=== PATIENT | male | born 1975 | race Asian ===

== ENCOUNTER 2017-07-21 11:41 | Emergency (ER) | payer MEDICAID ==
[2017-07-21 11:47] VITALS: TEMP 97.5; O2SAT 94
--- NOTE | 2017-07-21 12:15 | EDPHY ---
H & P Stated Complaint: ABD PAIN/BLOOD IN STOOL/INTERMITTENT OVER 1 YEAR Time Seen by Provider: 07/21/17 12:03 HPI/ROS: CHIEF COMPLAINT: Possible blood in stool 2 weeks ago HISTORY OF PRESENT ILLNESS: 42-year-old male no history of anticoagulant use, chronic NSAID use, alcohol use, abdominal surgeries, states that 2 weeks ago in 1 day he had 2 bowel movements that had a red appearance to them. He had some pain at that time as well with defecation. Pain with wiping. The symptoms have now resolved aid in seek medical attention at that time due to insurance issues. He notes chronic sleepiness which has been occurring for several years and notes no change in this. No fatigue. No dizziness. No nausea or vomiting. No abdominal pain. No rectal foreign body insertion. No fever or chills. No urinary abnormality. No beet ingestion. PRIMARY CARE PROVIDER:none REVIEW OF SYSTEMS: A ten point review of systems was performed and is negative with the exception of the items mentioned in the HPI PAST MEDICAL & SURGICAL HISTORY: No history of abdominal surgeries SOCIAL HISTORY: Nonsmoker. . PHYSICAL EXAM (Prior to examination, patient consented to physical exam, hands were washed and my usual and customary physical exam procedures followed) 1) GENERAL: Well-developed, well-nourished, alert and oriented. Appears to be in no acute distress. 2) HEAD: Normocephalic, atraumatic 3) HEENT: Pupils equal, round, reactive to light bilaterally. Sclera anicteric. Nasopharynx, oropharynx, clear, no lesions. Moist mucous membranes. 4) NECK: Full range of motion, no meningeal signs. 5) LUNGS: Clear auscultation bilaterally, no wheezes, no rhonchi, no retractions. 6) HEART: Regular rate and rhythm, no murmur, no heave, no gallop. 7) ABDOMEN: No guarding, no rebound, no focal tenderness, negative McBurney's, negative Avalos's, negative Rovsing's, negative peritoneal sign, I am unable to elicit any abdominal pain on exam 8) MUSCULOSKELETAL: Moving all extremities, no focal areas of tenderness, no obvious trauma. No peripheral edema or discoloration. 9) BACK: No CVA tenderness, no midline vertebral tenderness, no fluctuance, no step-off, no obvious trauma, no visual or palpable abnormality. 10) SKIN: No rash, no petechiae. 11) RECTAL: Multiple non thrombosed external hemorrhoids. Brown stool on glove. DIFFERENTIAL DIAGNOSIS: no particular include but limited to beet ingestion, hemorrhoid, anal fissure, GI bleed - Personal History Current Tetanus/Diphtheria Vaccine: Yes - Medical/Surgical History Hx Asthma: No Hx Chronic Respiratory Disease: No Hx Diabetes: No Hx Cardiac Disease: No Hx Renal Disease: No Hx Cirrhosis: No Hx Alcoholism: No Hx HIV/AIDS: No Hx Splenectomy or Spleen Trauma: No Other PMH: SLEEP APNEA/?HEMORRHOIDS - Social History Smoking Status: Never smoked Constitutional: Initial Vital Signs Temperature (C) 36.4 C 07/21/17 11:44 Heart Rate 98 07/21/17 11:44 Respiratory Rate 17 07/21/17 11:44 Blood Pressure 130/95 H 07/21/17 11:44 O2 Sat (%) 94 07/21/17 11:44 O2 Delivery Mode Room Air Allergies/Adverse Reactions: No Known Allergies Allergy (Unverified 07/21/17 11:44) Home Medications: Medication Instructions Recorded Hydrocortisone Acetate [Anucort-Hc] 25 mg RC DAILY #10 supp.rect 07/21/17 Medical Decision Making ED Course/Re-evaluation: 12:44 p.m.: Patient was re-evaluated with serial examinations. Discussed with him is negative serum occult blood no gross bleeding on rectal examination, brown stool only. Addition he has normal vital signs. I do not think, at this time, doubt further diagnostic studies are indicated. I have discussed his non thrombosed hemorrhoids with him and treatment for such. I recommended he establish primary care and have given him this referral information for the [facility] also given him Gastroenterology information. He feels comfortable being discharged , all questions and concerns addressed by myself.Care of patient under supervision of secondary supervising physician Dr Dooley . - Data Points Laboratory Results: 07/21/17 12:18 Stool Occult Bld Scrn NEGATIVE (NEGATIVE) Departure - Departure Disposition: Home, Routine, Self-Care Clinical Impression: Hemorrhoids Qualifiers: Hemorrhoid type: unspecified Qualified Code(s): K64.9 - Unspecified hemorrhoids Condition: Good Instructions: Hemorrhoids (ED) Additional Instructions: Return to the ER if you develop abdominal pain, further episodes of blood in her stool, dizziness, or any other symptoms that concern you. Referrals: [facility],. [Clinic] - 5-7 days, call for appt. Prescriptions: Hydrocortisone Acetate [Anucort-Hc] 25 mg RC DAILY #10 supp.rect
[2017-07-21 12:45] VITALS: BP 114/91; PULSE 92; RESP 16
== END 2017-07-21 12:44 | disposition home or self-care (01) ==
DX: K64.4 Residual hemorrhoidal skin tags (principal)

== ENCOUNTER 2017-09-23 20:50 | Emergency (ER) | payer OTHER, MEDICAID ==
[2017-09-23 20:55] VITALS: PULSE 87; RESP 18; TEMP 98.2
--- NOTE | 2017-09-23 21:02 | EDPHY ---
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 He felt immediate pain and started to bleed. He is ambulatory without deficit. Unsure of last tetanus booster. Filed police report. Denies paresthesias/decreased range of motion. Modifying Factors: None Comment: ROS: see HPI Constitutional: No fever, no chills, no weight loss Eyes: No blurred vision Respiratory: No shortness of breath, no cough Cardiovascular: No chest pain Gastrointestinal: No nausea, no vomiting no diarrhea Genitourinary: No dysuria Extremities: No myalgias Neurologic: No weakness, no numbness Skin: No rashes Hematologic: No bruising, no bleeding MEDICAL/SURGICAL/SOCIAL HISTORY: Medical history: SLEEP APNEA/?HEMORRHOIDS Surgical history: Denies Social history: Employed with medics. CONSTITUTIONAL: Anxious male, awake and alert, no obvious distress HEENT: Atraumatic and normocephalic, PERRL, EOMI. Tympanic membranes clear. Oropharynx clear, no exudate and moist pink mucosa. Airway patent. No lymphadenopathy. No meningismus. Cardiovascular: Normal S1/S2, regular rate, regular rhythm, without murmur rub or gallop. PULMONARY/CHEST: Symmetrical and nontender. Clear to auscultation bilaterally. Good air movement. No accessory muscle usage. ABDOMEN: Soft, nondistended, nontender, no rebound, no guarding, no peritoneal signs, no masses or organomegaly. No CVAT. EXTREMITIES: 2/2 pulses, strength 5/5, no deformities, no clubbing, no cyanosis or edema. NEUROLOGICAL: no focal neuro deficits. GCS 15. SKIN: Warm and dry, right calf shows bite superficial gamble; with mild surrounding bruising. No deep puncture wound appreciated. No active bleeding. no erythema. no rash. Good capillary refill. Source: Patient Exam Limitations: No limitations - Personal History Current Tetanus Diphtheria and Acellular Pertussis (TDAP): Yes - Medical/Surgical History Hx Asthma: No Hx Chronic Respiratory Disease: No Hx Diabetes: No Hx Cardiac Disease: No Hx Renal Disease: No Hx Cirrhosis: No Hx Alcoholism: No Hx HIV/AIDS: No Hx Splenectomy or Spleen Trauma: No Other PMH: SLEEP APNEA/?HEMORRHOIDS - Social History Smoking Status: Never smoked Constitutional: Initial Vital Signs Temperature (C) 36.8 C 09/23/17 20:53 Heart Rate 87 09/23/17 20:53 Respiratory Rate 18 09/23/17 20:53 Blood Pressure 142/85 H 09/23/17 20:53 O2 Sat (%) 95 09/23/17 20:53 O2 Delivery Mode Room Air Allergies/Adverse Reactions: No Known Allergies Allergy (Verified 09/23/17 20:53) Home Medications: Medication Instructions Recorded Hydrocortisone Acetate [Anucort-Hc] 25 mg RC DAILY #10 supp.rect 07/21/17 Amoxicillin/Clavulanate Pot 875 mg PO BID #14 tab 09/23/17 [Augmentin 875 MG TAB (*)] Medical Decision Making ED Course/Re-evaluation: Nurse called police. Given Augmentin and tetanus booster Let topical applied and wound copiously irrigated. Bacitracin, clean sterile dressing applied. No signs of neurovascular compromise/tenting of skin/compartment syndrome/ extremities and joints examined above and below area of concern and are neurovascularly intact. 2145: Police called back and notified that they talked to the blocker and sewer of the dog. The blocker and sewer showed proof that the dog had rabies vaccination in May 2017 and is up to date. Rabies vaccination and immunoglobulin are not indicated Augmentin and local wound care advised This patient was seen under the supervision of my secondary supervising physician. I evaluated care for this patient independently. Discussed this patient with Dr. Castillo who did not see the patient. Patient's presentation, labs/imaging, treatment and plan of care were discussed with secondary supervising physician. Differential Diagnosis: Differential diagnosis includes but is not limited to contusion, puncture wound , muscle injury, nerve injury. - Data Points Medications Given: Discontinued Medications Amoxicillin/Clavulanate Potassium (Augmentin 875mg) 875 mg PO EDNOW ONE PRN Reason: Protocol Stop: 01/06/18 21:07 Last Admin: 09/23/17 21:26 Dose: 875 mg Tetracaine/Epinephrine/Lidocaine (Let Gel Topical) 1 ea TP EDNOW ONE Stop: 09/23/17 21:07 Last Admin: 09/23/17 21:12 Dose: 1 ea Departure - Departure Disposition: Home, Routine, Self-Care Clinical Impression: Dog bite of right calf Qualifiers: Encounter type: initial encounter Qualified Code(s): S81.851A - Open bite, right lower leg, initial encounter Condition: Good Instructions: Animal Bite (ED) Additional Instructions: Keep the dressing dry and in place for 48 hours. After 48 hours, you may remove the dressing; wash the site daily with mild soap and water; then pat dry; apply topical antibiotic ointment daily and clean sterile dressing until fully healed. Take Tylenol 650 mg every 4 hours and/or Ibuprofen 600 mg every 8 hours with food as needed for pain. Follow-up with workman's comp. Referrals: NONE *PRIMARY CARE P,. [Primary Care Provider] - As per Instructions OTHER [facility] [place],. [[facility]] - As per Instructions Prescriptions: Amoxicillin/Clavulanate Pot [Augmentin 875 MG TAB (*)] 875 mg PO BID #14 tab
[2017-09-23] MEDS ORDERED: TDAP ADULT 0.5 ML INJ (BOOSTRIX) IM ONE ×2 (21:06→22:05)
[2017-09-23] MEDS ORDERED: AMOXICILLIN/CLAVULANATE POT 875/125 MG TAB PO ONE (21:06)
[2017-09-23] MEDS ORDERED: LET GEL TOPICAL 1 EA SYR TP ONE (21:06)
[2017-09-23 22:11] VITALS: BP 143/87; O2SAT 96
== END 2017-09-23 22:09 | disposition home or self-care (01) ==
DX: S81.851A Open bite, right lower leg, initial encounter (principal); Z23 Encounter for immunization; W54.0XXA Bitten by dog, initial encounter; Y92.009 Unspecified place in unspecified non-institutional (private) residence as the place of occurrence of the external cause; Y99.0 Civilian activity done for income or pay; Y93.89 Activity, other specified

== ENCOUNTER 2018-04-15 18:50 | Emergency (ER) | payer MEDICAID, OTHER ==
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
[2018-04-15] MEDS ORDERED: CYCLOBENZAPRINE 10MG PREPACK#3 BTL TAKEHOME ONE (22:00)
[2018-04-15 22:06] VITALS: BP 124/87
== END 2018-04-15 22:06 | disposition home or self-care (01) ==
DX: S43.401A Unspecified sprain of right shoulder joint, initial encounter (principal); S53.401A Unspecified sprain of right elbow, initial encounter; S63.501A Unspecified sprain of right wrist, initial encounter; Y04.8XXA Assault by other bodily force, initial encounter; Y92.89 Other specified places as the place of occurrence of the external cause; Y99.0 Civilian activity done for income or pay; Y93.89 Activity, other specified
CPT/HCPCS: A4565; L3984

== ENCOUNTER 2018-05-29 08:31 | Emergency (ER) | payer MEDICAID ==
[2018-05-29] MEDS ORDERED: BENZOCAINE UNIT DOSE SPRAY HURRICAINE MM ONE (09:06)
--- NOTE | 2018-05-29 09:25 | EDPHY ---
General Time Seen by Provider: 05/29/18 09:19 Narrative: CHIEF COMPLAINT: Dental pain, abscess HISTORY OF PRESENT ILLNESS: Patient presents with complaints of left-sided facial pain and possible abscess. It started 2 days ago. He thought that he was getting a dental abscess, which he has had in the past. Started taking a leftover prescription of Augmentin yesterday, 2 doses total. He has had no improvement. The pain is mild at rest. He feels that there is fullness in the face is painful when he tries to eat. He reports very poor dentition and dental care, last seen over 2 years ago. He has no difficulty opening the mouth but it is painful to do so. No difficulty talking, breathing, drinking liquids. Some difficulty eating. No fever. Tetanus up-to-date less than 1 year ago. No other associated complaints or modifying factors REVIEW OF SYSTEMS: 10 systems were reviewed and negative with the exception of the elements mentioned in the history of present illness. PCP: Pending SPECIALISTS: None PAST MEDICAL HISTORY: Dental abscesses, sleep apnea, hemorrhoids PAST SURGICAL HISTORY: No surgical history SOCIAL HISTORY: Endorses tobacco use. Denies alcohol or drug use. Works as a scrapper and a car driver FAMILY HISTORY: Noncontributory EXAMINATION: General Appearance: Alert, no distress Head: normocephalic, atraumatic Eyes: Pupils equal and round, no conjunctival pallor or injection ENT, Mouth: Mucous membranes moist. There is very poor dentition with multiple areas of dental care and partially absent teeth. The area in question , teeth #10-11, exhibit this and some mild erythema pulpitis. No palpable fluctuance. Neck: Normal inspection, supple, non-tender. No meningismus. Anterior cervical lymphadenopathy. Respiratory: No retractions or distress Cardiovascular: Regular rate good signs of perfusion Neurological: A&O, nonfocal, normal gait Skin: Warm and dry, no rash. There is some fullness to the left maxilla with no warmth, cellulitis or induration. Extremities: Nontender, no pedal edema Psychiatric: Mood and affect normal DIFFERENTIAL DIAGNOSES: Including but not limited to facial abscess, dental abscess, osteomyelitis, cellulitis MDM: 9:10 a.m. Left-sided facial swelling with possible underlying abscess of the alveolar ridge. I cannot visualize a palpable area of fluctuance on the gumline, but there is some irritation over teeth numbers and/or, that are mostly decayed and partially absent. He does have palpable fluctuance on the left maxilla. I have ordered i-STAT, IV placement and will obtain a CT to better visualize. 10:20 a.m. Mild leukocytosis. Notified by radiologist that CT scan does reveal a very small area of fluid collection it's periodontal or facial. No significant abscess. I will discuss with oral maxillofacial surgeon. 11:15 a.m. Case discussed with Dr. Tanner. She informed that she is not livestock commission agent but will have 1 of her partners return my call. 11:45 a.m. I have been able to contact anyone for oral surgery, but no one is technically on-call for the emergency department this time, thus I will contact ENT. 12:10 p.m. Case discussed with Dr. Fischer, ENT. She has reviewed the CT images. She recommends 10 days of augmentin, peridex TID and close follow up with dentist KELLIE. 12:20 p.m. I re-evaluated the patient discussed this plan. he is agreeable to this plan. We discussed antibiotic therapy, close follow-up with dentist, ENT follow-up, oral surgery follow-up as needed. We discussed ED precautions for trismus, headache, neck pain or stiffness, fever, intractable pain. At this time he is declining pain medication and is discharged home stable condition. I have also provided the on-call outpatient medicine for him to salvage has a primary care physician SUPERVISION: This patient was independently evaluated without direct involvement of or examination by the attending physician. CONSULTATION: ENT consultation by telephone, Dr. Fischer - Diagnostics Imaging Results: Imaging Impressions Face CT 05/29/18 09:32 Impression: Small peripheral enhancing fluid collection at the lateral margin of the left maxilla in the region of periodontal disease, suggesting abscess. Findings discussed with Rogelio Quispe on 05/29/2018 at 10:20 a.m. Imaging: Discussed imaging studies w/ house calls nurse Radiologist, I viewed and interpreted images myself - History History Review: I reviewed the patient's medical records, I obtained additional history from the patient's family Smoking Status: Current some day smoker - Objective Vital Signs: Initial Vital Signs Temperature (C) 98.8 F 05/29/18 08:38 Heart Rate 102 H 05/29/18 08:38 Respiratory Rate 16 05/29/18 08:38 Blood Pressure 156/85 H 05/29/18 08:38 O2 Sat (%) 96 05/29/18 08:38 O2 Delivery Mode Room Air Allergies/Adverse Reactions: No Known Allergies Allergy (Verified 05/29/18 08:36) Home Medications: Medication Instructions Recorded Amoxicillin/Clavulanate Pot 875 mg PO BID #14 tab 09/23/17 [Augmentin 875 MG TAB (*)] Amoxicillin/Clavulanate Pot 875 mg PO BID #28 tab 05/29/18 [Augmentin 875 MG TAB (*)] Chlorhexidine Gluconate [Peridex 15 ml PO TID 10 Days ml 05/29/18 oral soln (*)] oxyCODONE HCL/ACETAMINOPHEN 1 each PO Q4-6PRN PRN #13 tablet 05/29/18 [Percocet 5-325 mg Tablet] Laboratory Results: Laboratory Results 05/29/18 09:25 05/29/18 05/29/18 09:33 09:25 WBC 9.87 10^3/uL H 10^3/uL (3.80-9.50) RBC 4.87 10^6/uL 10^6/uL (4.40-6.38) Hgb 15.6 g/dL g/dL (13.7-17.5) POC Hgb 16.0 gm/dL gm/dL (13.7-17.5) Hct 45.1 % % (40.0-51.0) POC Hct 47 % % (40-51) MCV 92.6 fL fL (81.5-99.8) MCH 32.0 pg pg (27.9-34.1) MCHC 34.6 g/dL g/dL (32.4-36.7) RDW 12.9 % % (11.5-15.2) Plt Count 237 10^3/uL 10^3/uL (150-400) MPV 9.6 fL fL (8.7-11.7) Neut % (Auto) 72.2 % % (39.3-74.2) Lymph % (Auto) 19.0 % % (15.0-45.0) Door % (Auto) 7.3 % % (4.5-13.0) Eos % (Auto) 0.6 % % (0.6-7.6) Baso % (Auto) 0.4 % % (0.3-1.7) Nucleat RBC Rel Count 0.0 % % (0.0-0.2) Absolute Neuts (auto) 7.12 10^3/uL H 10^3/uL (1.70-6.50) Absolute Lymphs (auto) 1.88 10^3/uL 10^3/uL (1.00-3.00) Absolute Monos (auto) 0.72 10^3/uL 10^3/uL (0.30-0.80) Absolute Eos (auto) 0.06 10^3/uL 10^3/uL (0.03-0.40) Absolute Basos (auto) 0.04 10^3/uL 10^3/uL (0.02-0.10) Absolute Nucleated RBC 0.00 10^3/uL 10^3/uL (0-0.01) Immature Gran % 0.5 % % (0.0-1.1) Immature Gran # 0.05 10^3/uL 10^3/uL (0.00-0.10) ESR 20 MM/HR H MM/HR (0-15) POC Sodium 140 mEq/L mEq/L (135-145) POC Potassium 4.0 mEq/L mEq/L (3.3-5.0) POC Chloride 102 mEq/L mEq/L (97-110) POC BUN 12 mg/dL mg/dL (7-23) POC Creatinine 0.7 mg/dL mg/dL (0.7-1.3) POC Glucose 101 mg/dL H mg/dL (70-100) Point of Care Test Results: Chemistry 05/29/18 09:33 POC Sodium 140 mEq/L mEq/L (135-145) POC Potassium 4.0 mEq/L mEq/L (3.3-5.0) POC Chloride 102 mEq/L mEq/L (97-110) POC BUN 12 mg/dL mg/dL (7-23) POC Creatinine 0.7 mg/dL mg/dL (0.7-1.3) POC Glucose 101 mg/dL H mg/dL (70-100) ISTAT H&H 05/29/18 09:33 POC Hgb 16.0 gm/dL gm/dL (13.7-17.5) POC Hct 47 % % (40-51) Departure - Departure Disposition: Home, Routine, Self-Care Clinical Impression: Abscess, dental, Pain due to dental caries Condition: Good Instructions: Oxycodone/Acetaminophen (By mouth), Amoxicillin/Clavulanate Potassium (By mouth), Dental Abscess (ED), Toothache (ED) Additional Instructions: 1. Augmentin twice daily for the next 10-14 days 2. Pain medication as prescribed as needed 3. Peridex oral mouth rinse, 3 times daily as prescribed 4. Contact Ear Nose and Throat physician, oral surgeon and dentist for outpatient care this week 5. ED precautions for fever, increasing pain, headache, nausea vomiting, difficulty opening or closing the mouth Referrals: Heather Fischer MD [Medical Doctor] - As per Instructions Mikhail Wong DDS [Doctor of Dental Surgery] - As per Instructions [facility] [Outside] - As per Instructions Robel Hernandez MD [Medical Doctor] - As per Instructions Prescriptions: Amoxicillin/Clavulanate Pot [Augmentin 875 MG TAB (*)] 875 mg PO BID #28 tab Chlorhexidine Gluconate [Peridex oral soln (*)] 15 ml PO TID 10 Days ml oxyCODONE HCL/ACETAMINOPHEN [Percocet 5-325 mg Tablet] 1 each PO Q4-6PRN PRN # 13 tablet PRN Reason: Pain, Breakthrough
[2018-05-29] MEDS ORDERED: IOPAMIDOL (ISOVUE-300) 100 ML BTL ONE (09:47)
[2018-05-29 09:50] LABS: PLATELET COUNT 237 10^3/uL (150-400)
[2018-05-29 12:20] VITALS: BP 142/91
== END 2018-05-29 12:37 | disposition home or self-care (01) ==
DX: K04.7 Periapical abscess without sinus (principal); F17.200 Nicotine dependence, unspecified, uncomplicated
CPT/HCPCS: 82435-PO; 82565-PO; 82947-PO; 84132-PO; 84295-PO; 84520-PO; 85014-PO; Q9967